=== PATIENT | male | born 1975 | race Caucasian/White ===

== ENCOUNTER 2023-01-23 17:13 | Emergency (ER) | payer OTHER, SELFPAY ==
[2023-01-23 17:29] VITALS: BP 137/92; PULSE 119; RESP 18; TEMP 36.8; O2SAT 98
--- NOTE | 2023-01-23 18:14 | ED.EAR ---
HPI - Ear Problem General Chief complaint: Ear Stated complaint: Rt Ear Irritation Time Seen by Provider: 01/23/23 18:05 Source: patient and RN notes reviewed Mode of arrival: ambulatory Limitations: no limitations History of Present Illness HPI Narrative: Patient presents today complaining of right ear clogging, intermittent pain and drainage with muffling x2 weeks. He also reports some ringing in the ear, but this can be normal for him. Left ear normal. Denies any additional symptoms. He has tried [id number] ear drops, peroxide, Zyrtec, Sudafed without relief. Related Data Home Medications Medication Instructions Recorded Confirmed chlorthalidone 25 mg tablet 25 mg PO DAILY 01/23/23 01/23/23 sertraline 50 mg tablet 50 mg PO DAILY 01/23/23 01/23/23 Allergies Allergy/AdvReac Type Severity Reaction Status Date / Time No Known Allergies Allergy Verified 01/23/23 17:27 Review of Systems Review of Systems: CONSTITUTIONAL: Denies body aches, fever, chills, or sweats. EYES: Denies visual changes, redness, or discharge. ENT: Denies rhinorrhea, congestion, sore throat. + right ear pain, clogging, drainage CARDIOVASCULAR: Denies chest pain, palpitations, or edema. RESPIRATORY: Denies cough or dyspnea. GASTROINTESTINAL: Denies abdominal pain, nausea, vomiting, or diarrhea. GENITOURINARY: Denies dysuria or hematuria. SKIN: Denies rash, itching, or wounds. MUSCULOSKELETAL: Denies back pain, joint pain, or myalgia. NEUROLOGIC: Denies headache, numbness, tingling, or weakness. PSYCH: Denies depression or anxiety. PMFSH Comments At time of signature, I have reviewed and agree with nursing past medical, surgical, social and family history unless otherwise noted. Please see nursing chart for further information. There is no relevant family history pertinent to the presenting complaint Exam Narrative: GENERAL: Well-appearing, well-nourished, and in no acute distress. HEAD: Normocephalic, atraumatic. EYES: EOMI. No redness or drainage. Conjunctivae normal. ENT: Mucous membranes pink and moist. Nares clear. No rhinorrhea. Left TM and canal normal. Right TM erythematous with purulent effusion. Canal normal. No movement tenderness. NECK: Normal AROM. CHEST: No respiratory distress. EXTREMITIES: Normal range of motion. No edema. SKIN: Warm, dry, no rash. Capillary refill normal. Normal skin turgor. NEURO: No focal deficits. Alert and oriented x3. Gait steady. PSYCH: Normal affect. No signs of depression or anxiety. Course Course Level of Care: Express Care Visit Vital Signs Vital signs: Vital Signs Temperature 98.2 F 01/23/23 17:29 Pulse Rate 119 H 01/23/23 17:29 Respiratory Rate 18 01/23/23 17:29 Blood Pressure 137/92 H 01/23/23 17:29 Pulse Oximetry 98 01/23/23 17:29 Oxygen Delivery Room Air 01/23/23 17:29 Temperature 98.2 F 01/23/23 17:29 Pulse Rate 119 H 01/23/23 17:29 Respiratory Rate 18 01/23/23 17:29 Blood Pressure 137/92 H 01/23/23 17:29 Pulse Oximetry 98 01/23/23 17:29 Oxygen Delivery Room Air 01/23/23 17:29 Reviewed. Pt has been instructed to follow up with his PCP regarding his elevated blood pressure today. Medical Decision Making MDM Narrative Medical decision making narrative: Exam consistent with right otitis media. Will prescribe Augmentin. Anticipatory guidance given. Differential Diagnosis Differential Diagnosis: Otitis media, otitis externa, ruptured TM, serous otitis, eustachian tube dysfunction, cerumen impaction Vital Signs Vital Signs: Vital Signs Temperature 98.2 F 01/23/23 17:29 Pulse Rate 119 H 01/23/23 17:29 Respiratory Rate 18 01/23/23 17:29 Blood Pressure 137/92 H 01/23/23 17:29 Pulse Oximetry 98 01/23/23 17:29 Oxygen Delivery Room Air 01/23/23 17:29 Temperature 98.2 F 01/23/23 17:29 Pulse Rate 119 H 01/23/23 17:29 Respiratory Rate 18 01/23/23 17:29 Blood Pressure 137/92
== END 2023-01-23 18:23 | disposition home or self-care (01) ==
PROVIDERS: Emergency Provider Nurse Practitioner; PCP Family Medicine
DX: H66.001 Acute suppurative otitis media without spontaneous rupture of ear drum, right ear (principal); I10 Essential (primary) hypertension; F41.9 Anxiety disorder, unspecified
CPT/HCPCS: 99213; G0463

== ENCOUNTER → 2023-02-22 08:06 | Outpatient (CLI) | payer OTHER, SELFPAY ==
--- NOTE | ~2023-02-22 | CT_ITS ---
EXAMINATION: CT IAC/mastoids BI wo con DATE: 02/22/2023 08:33 INDICATION: Unspecified hearing loss, right ear. TECHNIQUE: Computed tomography (CT) of the temporal bones was performed without intravenous contrast. Automated exposure control and iterative reconstruction technique were employed. The dose-length pro duct was 375.79 mGy-cm. COMPARISON: None FINDINGS: RIGHT TEMPORAL BONE: The internal auditory canal, cochlea, vestibule, semicircular canals, vestibular aqueduct, facial ner ve course, carotid canal, jugular bulb, and ossicles are normal. There is material in [place] space t hat is contiguous with thickening of the tympanic membrane. Scutum is normal. The mastoid air cells a nd external auditory canal are normal. LEFT TEMPORAL BONE: The internal auditory canal, cochlea, vestibule, semicircular canals, vestibular aqueduct, carotid ca nal, jugular bulb, facial nerve course, ossicles, [place] space, and scutum are normal. There is thic kening of the tympanic membrane. The mastoid air cells and external auditory canal are normal. IMPRESSION: 1. Material in right [place] space that is contiguous with thickening of the tympanic membrane. No harsh ne erosions. Cholesteatoma and chronic otitis media cannot be excluded. 2. Thickening of left tympanic membrane. Reviewed, dictated and finalized at location A. IMPRESSION: 1. Material in right [place] space that is contiguous with thickening of the ty mpanic membrane. No bone erosions. Cholesteatoma and chronic otitis media canno t be excluded. 2. Thickening of left tympanic membrane.
== END ==
PROVIDERS: PCP Otolaryngology; Visit Provider Otolaryngology
DX: H91.91 Unspecified hearing loss, right ear (principal); H66.001 Acute suppurative otitis media without spontaneous rupture of ear drum, right ear
CPT/HCPCS: 70480